=== PATIENT | female | born 1975 | race Caucasian/White ===

== ENCOUNTER 2024-07-02 16:29 | Outpatient (REF) | payer OTHER, SELFPAY ==
--- NOTE | ~2024-07-02 | XR_ITS ---
EXAMINATION: XR CHEST CLINICAL INFORMATION: Cough. COMPARISON: None available. TECHNIQUE: 2 views of the chest were obtained. FINDINGS: No airspace consolidation. No pleural effusion or pneumothorax. Unremarkable cardiomediastinal silhouette. Partially visualized, peripherally calcified structure within the left upper quadrant measuring up to 12.5 cm in craniocaudal dimension. Findings are nonspecific and may be related to the spleen, adrenal gland, or left kidney. If there is clinical concern and no prior medical history, abdominal imaging could help further evaluate. XR/XR chest 2V IMPRESSION: 1. No acute cardiopulmonary findings. 2. Partially visualized, peripherally calcified structure within the left upper quadrant measuring up to 12.5 cm in craniocaudal dimension. Findings are nonspecific and may be related to the spleen, adrenal gland, or left kidney. If there is clinical concern and no prior medical history, abdominal imaging could help further evaluate. Electronically signed by: Florentino Harper MD 07/02/2024 05:17 PM EDT
== END 2024-07-02 16:30 | disposition home or self-care (01) ==
LOC: HO.XRAY 16:29
PROVIDERS: PCP Internal Medicine; Visit Provider Physician Assistant Medical
DX: R05.9 Cough, unspecified (principal); R06.02 Shortness of breath
CPT/HCPCS: 71046

== ENCOUNTER 2024-07-02 18:16 | Emergency (ER) | payer OTHER, SELFPAY ==
--- NOTE | ~2024-07-02 | CT_ITS ---
EXAMINATION: CT ABDOMEN AND PELVIS WITH CONTRAST CLINICAL INFORMATION: Left upper quadrant mass COMPARISON: None available. TECHNIQUE: Multidetector volumetric images were obtained from the superior aspect of the liver through the pubic symphysis following administration 85 mL of Omnipaque 350 intravenous contrast. Sagittal and coronal reformatted images were obtained on the technologist's workstation. Oral contrast: No This CT examination was performed using dose optimization techniques as appropriate, variously including the following: *Automated exposure control *Adjustment of mA and/or kV according to patient size (this includes techniques or standardized protocols for targeted exams where dose is matched to indication/reason for exam; i.e. extremities or head) *Use of iterative reconstruction technique DLP: 478 mGy-cm FINDINGS: LUNG BASES: There is an opacity at the left lung base, at the anterior aspect of the lower lobe which could represent pneumonia or rounded atelectasis given its location immediately adjacent to the subdiaphragmatic rim calcified splenic cyst. LIVER, GALLBLADDER, AND BILIARY TREE: The liver is normal in size, shape, and attenuation. No focal hepatic lesion or biliary ductal dilatation is present. The gallbladder is unremarkable with no evidence of radiopaque gallstones, gallbladder wall thickening, or obvious pericholecystic inflammatory changes. PANCREAS: Unremarkable. SPLEEN: Within the anterior aspect of the spleen there is a rim calcified cyst measuring 7.4 x 8.3 x 10.4 cm. 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 The remainder of the spleen appears normal. ADRENAL GLANDS: Unremarkable. KIDNEYS AND URETERS: The kidneys are normal in size, shape, and attenuation. No hydronephrosis, hydroureter, or calculi seen. No perinephric stranding. BLADDER: Unremarkable. GASTROINTESTINAL TRACT: The small and large bowel are unremarkable. The appendix is unremarkable. ABDOMINAL WALL: No significant hernia is appreciated. LYMPH NODES: Normal. VASCULAR: Unremarkable. PELVIC VISCERA: The uterus is retroflexed. Fluid is present within the endometrial canal. There is a 4.7 cm subserosal fibroid of the left anterior uterine body. OSSEOUS STRUCTURES: Moderate L5-S1 degenerative disc disease, as well as degenerative disc disease of the lower thoracic spine. CT/CT abdomen pelvis w IV con IMPRESSION: 1. There is a rim calcified cyst of the anterior aspect of the spleen measuring 7.4 x 8.3 x 10.4 cm. 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 2. There is an opacity at the anterior aspect of the left lung base along the left hemidiaphragm which could represent pneumonia or rounded atelectasis given its location immediately adjacent to the splenic cyst. 3. There is a 4.7 cm subserosal fibroid of the left anterior uterine body. Fleischner guidelines were followed. Electronically signed by: Anthony Durham MD 07/02/2024 07:49 PM EDT
--- NOTE | 2024-07-02 18:17 | ED_ITS ---
HPI - General Adult General Chief complaint: Recheck/Abnormal Lab/Rx Stated complaint: incidental finding on chest x ray Time Seen by Provider: 07/02/24 18:17 Source: patient Mode of arrival: ambulatory Limitations: no limitations History of Present Illness ED Provider: Nelsy Crockett PA-C HPI narrative: Patient is a 49 year old assigned female at with no reported medical history presenting to the emergency department today with a cough and concerns over an incidental finding on a CXR. Patient states that over the last 4 days she has had significant coughing with a fever. Patient states that she had an outpatient chest XR done that showed an incidental lesion in her abdomen that she would like further evaluated. Patient denies any dizziness, lightheadedness, abdominal pain, nausea, vomiting, chills, blurry vision, double vision, loss of vision, chest pain, difficulty breathing, shortness of breath, back pain, night sweats, pain with urination, increased urinary frequency, increased urinary urgency, blood in her urine or stool, syncope or a near syncopal episode, recent trauma or falls, bowel incontinence, bladder incontinence, or any other complaints at this time. Onset (ago): day(s) (4) Relieving factors: none Exacerbating factors: none Associated symptoms: cough Treatments prior to arrival: none Related Data Previous Rx's ?Medication ?Instructions ?Recorded azithromycin 250 mg tablet 250 mg PO DAILY 4 days #4 tabs 07/02/24 cefuroxime axetil 250 mg tablet 500 mg (2 x 250 mg) PO BID 7 days 07/02/24 #28 tabs Allergies Allergy/AdvReac Type Severity Reaction Status Date / Time No Known Allergies Allergy Verified 07/02/24 18:23 Review of Systems 2 Constitutional: Constitutional: Reports no additional constitutional complaints, Denies chills, Reports fever(s) and Denies night sweats Eyes: Eyes: Reports no additional eye complaints, Denies blurry vision, Denies change in vision, Denies diplopia, Denies eye discharge, Denies loss of vision and Denies eye pain ENT: Denies dizziness Cardiovascular: Cardiovascular: Reports no additional cardiovascular complaints, Denies chest pain, Denies lightheadedness, Denies Loss of Consciousness and Denies dyspnea Respiratory: Respiratory: Reports no additional respiratory complaints, Reports cough and Denies dyspnea Gastrointestinal: Gastrointestinal: Reports no additional gastrointestinal complaints, Denies abdominal pain, Denies melena, Denies hematochezia, Denies change in bowel habits and Denies change in stool character Genitourinary: Genitourinary: Denies hematuria, Denies urinary frequency, Denies dysuria, Denies urinary incontinence, Denies urinary hesitancy and Denies urinary urgency Musculoskeletal: Musculoskeletal: Reports no additional musculoskeletal complaints, Denies numbness and Denies tingling Neurologic: Denies dizziness, Denies loss of vision, Denies numbness and Denies tingling Psychiatric: Psychiatric: Reports no additional psychiatric complaints Endocrine: Endocrine: Reports no additional endocrine complaints Hematologic/Lymphatic: Hematologic/Lymphatic: Reports no additional hematologic/lymphatic complaints Allergic/Immunologic: Allergic/Immunologic: Reports no additional allergic/immunologic complaints PMFSH Past Medical History Attestation statement: The following information was validated with the patient. Source: old records reviewed and nursing notes reviewed Social History Social History Advance Directives: No Advance Directives Information Provided: No Physical Exam ED Vital Signs: Vital Signs - 24 hr 07/02/24 18:22 Temperature 98.6 F Pulse Rate 90 Respiratory Rate 20 Blood Pressure 142/97 H Pulse Oximetry 98 Oxygen Delivery Method Room Air BMI result Body Mass Index 24.6 Const General: cooperative, no acute distress, alert and awake Nutritional Appearance: well nourished Orientation/consciousness: patient oriented x3 Limitations: no limitations HENMT Head: Yes normal to inspection and Yes atraumatic Ears: hearing grossly normal bilaterally and external ears normal General nose exam: Normal external nose present, no nasal discharge noted and no epistaxis Face and sinus: Yes normal facial exam, No abrasion and No laceration Mouth: Normal oral and palatal mucosa present, no drooling and no muffled voice Eyes General: appearance normal, both eyes and all related structures Periorbital: periorbital findings normal Eyelids: Yes eyelids normal Conjunctivae: conjunctivae normal Pupils: Equal, round and reactive pupils present EOM: EOMs intact bilaterally Neck Neck: Yes normal visual inspection, Yes full ROM and Yes no lymphadenopathy Chest Chest palpation & inspection: normal inspection of the chest Resp Effort & Inspection: normal respiratory effort and able to speak in complete sentences GI Inspection: Yes normal to inspection Neuro General: patient oriented x3 and moves all extremities Cranial nerves: Yes Equal, round and reactive pupils present Cognition (Neuro): normal cognition Extrem General: Yes normal to inspection, Yes full ROM and Yes capillary refill normal Psych Appearance: grossly normal Mental Status: mental status grossly normal Affect: normal affect Attitude: cooperative Thought process: Normal thought process present Thought content: Normal thought content present Insight: Good insight present (Psych) Medications Administered Discontinued Medications Generic Name Dose Route Start Last Admin Trade Name Leslie PRN Reason Stop Dose Admin Iohexol 100 ml 07/02/24 19:04 07/02/24 19:05 Iohexol 350 Mg/Ml 100 Ml Infus..Btl IV 07/02/24 19:05 85 ml ONCE ONE Administration Medical Decision Making Medical Decision Making [facility] Narrative: Patient is a 49 year old assigned female at with no reported medical history presenting to the emergency department today with a cough, fever, and incidental imaging finding. Patient's physical exam was unremarkable. Patient's blood work was unremarkable. Patient's out patient chest x-ray showed a partially visualized calcified structure within the upper left quadrant measuring up to 12.5cm for which the radiologist recommended additional imaging. Patient's CT abd/pelvis showed a posttraumatic pseudocyst of the spleen, a left sided pneumonia, and a uterine fibroid. I explained my physical exam findings as well as all test results to the patient. I answered all questions asked by the patient. I stressed the importance of the patient taking her medication as directed (either prescribed or as the over the counter packaging recommends). I stressed the importance of the patient following up with her primary care provider. I stressed the importance of the patient returning to the emergency department immediately if her symptoms were to worsen or if she were to develop any dizziness, shortness of breath, difficulty breathing, chest pain, blurry vision, loss of vision, nausea, vomiting, abdominal pain, fever, chills, back pain, or any other complaints. Patient verbalized agreement and understanding with this treatment plan and discharge. Differential Diagnosis Differential Diagnoses: The differential diagnosis associated with the presentation includes COVID-19 Influenza RSV Pneumonia Splenic cyst Admission/Observation Consideration of admission/observation: Escalation of care including admission/observation considered Patient would have been admitted to the hospital had her work up had any findings where hospital admission was appropriate and her clinical presentation warranted hospital admission. Lab Data [facility] Lab Attestation statement: I reviewed the patient's lab results. My interpretation of these studies and their corresponding values is that they are grossly normal. 07/02/24 18:26 07/02/24 18:26 Labs: Lab Results 07/02/24 Range/Units 18:26 WBC 8.8 (4.8-10.8) X10*3/uL RBC 4.43 (4.20-5.50) X10*6/uL Hgb 13.6 (12.0-16.0) g/dl Hct 38.9 (37.0-47.0) % MCV 87.8 (80.0-98.0) fL MCH 30.7 (27.0-33.0) pg MCHC 35.0 (31.0-35.0) g/dl RDW 13.1 (11.0-16.0) % Plt Count 244 (160-400) X10*3/uL MPV 9.2 L (9.4-12.3) fL Immature Gran % (Auto) 0.2 (0.0-0.4) % Neut % (Auto) 78.8 H (45-73) % Lymph % (Auto) 9.5 L (20-40) % [place] % (Auto) 10.3 (2-11) % Eos % (Auto) 0.9 (0-4) % Baso % (Auto) 0.3 (0-2) % Lymph # (Auto) 0.8 L (1.2-4.9) X10*3/uL [place] # (Auto) 0.9 (0.1-1.2) X10*3/uL Eos # (Auto) 0.1 (0.0-0.4) X10*3/uL Baso # (Auto) 0.0 (0.0-0.2) X10*3/uL Abs Immat Gran (auto) 0.02 (0.00-0.03) X10*3/uL Absolute Neuts (auto) 7.0 (2.0-8.3) x10*3/uL Absolute Nucleated RBC 0.000 (0.0-0.012) X10*3/uL Nucleated RBC % (auto) 0.0 (0.0-0.2) /100WBC Sodium 137 (135-145) mmol/L Potassium 4.1 (3.3-5.1) mmol/L Chloride 105 (96-108) mmol/L Carbon Dioxide 23 (22-29) mmol/L Anion Gap 13 (12-20) BUN 11 (9-16) mg/dL Creatinine 0.83 (0.5-1.4) mg/dL Estim Creat Clear Calc 77.9 Estimated GFR > 60 Random Glucose 93 (60-115) mg/dL Calcium 9.6 (8.4-10.2) mg/dL Magnesium 1.9 (1.6-2.6) mg/dL Total Bilirubin 0.5 (0.0-1.0) mg/dL AST 23 (5-31) U/L ALT 16 (0-31) U/L Alkaline Phosphatase 59 (39-117) U/L Total Protein 7.8 (6.5-8.0) g/dL Albumin 4.3 (3.5-5.0) g/dL Lipase 25 (8-78) U/L Monoscreen Negative (Negative) Influenza Type A (PCR) NEGATIVE (Negative) Influenza Type B (PCR) NEGATIVE (Negative) RSV RNA Qual (PCR) NEGATIVE (Negative) SARS-CoV-2 RNA (RT-PCR) NEGATIVE (Negative) Independent Interpretation I performed an independent interpretation of an: Plain X-Ray and CT Scan Interpretation: My interpretation is in agreement with the radiologist's impression of these imaging studies. L EXAMINATION: XR CHEST CLINICAL INFORMATION: Cough. COMPARISON: None available. TECHNIQUE: 2 views of the chest were obtained. FINDINGS: No airspace consolidation. No pleural effusion or pneumothorax. Unremarkable cardiomediastinal silhouette. Partially visualized, peripherally calcified structure within the left upper quadrant measuring up to 12.5 cm in craniocaudal dimension. Findings are nonspecific and may be related to the spleen, adrenal gland, or left kidney. If there is clinical concern and no prior medical history, abdominal imaging could help further evaluate. XR/XR chest 2V IMPRESSION: 1. No acute cardiopulmonary findings. 2. Partially visualized, peripherally calcified structure within the left upper quadrant measuring up to 12.5 cm in craniocaudal dimension. Findings are nonspecific and may be related to the spleen, adrenal gland, or left kidney. If there is clinical concern and no prior medical history, abdominal imaging could help further evaluate. Electronically signed by: Florentino Harper MD 07/02/2024 05:17 PM EDT RP Dictated By: Florentino Harper MD Signed By: Electronically signed by Florentino Harper MD 07/02/24 1717 EXAMINATION: CT ABDOMEN AND PELVIS WITH CONTRAST CLINICAL INFORMATION: Left upper quadrant mass COMPARISON: None available. TECHNIQUE: Multidetector volumetric images were obtained from the superior aspect of the liver through the pubic symphysis following administration 85 mL of Omnipaque 350 intravenous contrast. Sagittal and coronal reformatted images were obtained on the technologist's workstation. Oral contrast: No This CT examination was performed using dose optimization techniques as appropriate, variously including the following: *Automated exposure control *Adjustment of mA and/or kV according to patient size (this includes techniques or standardized protocols for targeted exams where dose is matched to indication/reason for exam; i.e. extremities or head) *Use of iterative reconstruction technique DLP: 478 mGy-cm FINDINGS: LUNG BASES: There is an opacity at the left lung base, at the anterior aspect of the lower lobe which could represent pneumonia or rounded atelectasis given its location immediately adjacent to the subdiaphragmatic rim calcified splenic cyst. LIVER, GALLBLADDER, AND BILIARY TREE: The liver is normal in size, shape, and attenuation. No focal hepatic lesion or biliary ductal dilatation is present. The gallbladder is unremarkable with no evidence of radiopaque gallstones, gallbladder wall thickening, or obvious pericholecystic inflammatory changes. PANCREAS: Unremarkable. SPLEEN: Within the anterior aspect of the spleen there is a rim calcified cyst measuring 7.4 x 8.3 x 10.4 cm. 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 The remainder of the spleen appears normal. ADRENAL GLANDS: Unremarkable. KIDNEYS AND URETERS: The kidneys are normal in size, shape, and attenuation. No hydronephrosis, hydroureter, or calculi seen. No perinephric stranding. BLADDER: Unremarkable. GASTROINTESTINAL TRACT: The small and large bowel are unremarkable. The appendix is unremarkable. ABDOMINAL WALL: No significant hernia is appreciated. LYMPH NODES: Normal. VASCULAR: Unremarkable. PELVIC VISCERA: The uterus is retroflexed. Fluid is present within the endometrial canal. There is a 4.7 cm subserosal fibroid of the left anterior uterine body. OSSEOUS STRUCTURES: Moderate L5-S1 degenerative disc disease, as well as degenerative disc disease of the lower thoracic spine. CT/CT abdomen pelvis w IV con IMPRESSION: 1. There is a rim calcified cyst of the anterior aspect of the spleen measuring 7.4 x 8.3 x 10.4 cm. 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 2. There is an opacity at the anterior aspect of the left lung base along the left hemidiaphragm which could represent pneumonia or rounded atelectasis given its location immediately adjacent to the splenic cyst. 3. There is a 4.7 cm subserosal fibroid of the left anterior uterine body. Fleischner guidelines were followed. Electronically signed by: Anthony Durham MD 07/02/2024 07:49 PM EDT RP Dictated By: Anthony Durham MD Signed By: Electronically signed by Anthony Durham MD 07/02/241948 Radiology Impression Discussion of test interpretation with radiology: I have reviewed the radiologist's reading. Prescription Management I considered prescription management with: Antibiotic (patient prescribed antibiotics to cover atypical pneumonia) Discharge Plan Discharge Clinical Impression: Pneumonia, Splenic cyst, Uterine fibroid Patient Disposition: Home, Self-Care Instructions: Community Acquired Pneumonia (DC) Additional Instructions: Your CT scan showed a calcified cyst of the spleen which likely represents a chronic posttraumatic pseudocyst as well as a uterine firboid and possible pneumonia. Given your symptoms - we are treating you for pneumonia. Follow up with your primary care provider. Return to the emergency department immediately if your symptoms worsen or if you develop any dizziness, shortness of breath, difficulty breathing, chest pain, blurry vision, loss of vision, nausea, vomiting, abdominal pain, fever, chills, back pain, or any other complaints. Prescriptions: New azithromycin 250 mg tablet 250 mg PO DAILY 4 Days Qty: 4 0RF Rx Instructions: start on day 2 of therapy cefuroxime axetil 250 mg tablet 500 mg PO BID 7 Days Qty: 28 0RF Referrals: Maye Vázquez MD [Primary Care Provider] - Interventions: ED Discharge Assessment Last Done: 07/02/24 20:24 Print Language: Brazilian
[2024-07-02 18:22] VITALS: BP 142/97; PULSE 90; RESP 20; TEMP 37; O2SAT 98; BMI 24.6
[2024-07-02 18:30] LABS: MANUAL DIFF FLAG NO
[2024-07-02 18:31] LABS: Basophils Percent Auto 0.3 % (0-2); Eosinophils Absolute Auto 0.1 X10*3/uL (0.0-0.4); Eosinophils Percent Auto 0.9 % (0-4); Hematocrit 38.9 % (37.0-47.0); Hemoglobin 13.6 g/dl (12.0-16.0); Imm Gran Abs Auto 0.02 X10*3/uL (0.00-0.03); Imm Gran Pct Auto 0.2 % (0.0-0.4); Lymphocytes Absolute Auto 0.8 X10*3/uL (1.2-4.9); Lymphocytes Percent Auto 9.5 % (20-40); Mean Corpuscular Hemoglobin 30.7 pg (27.0-33.0); Mean Corpuscular Volume 87.8 fL (80.0-98.0); Mean Platelet Volume 9.2 fL (9.4-12.3); Monocytes Absolute Auto 0.9 X10*3/uL (0.1-1.2); Monocytes Percent Auto 10.3 % (2-11); Neutrophils Percent Auto 78.8 % (45-73); Platelet Count 244 X10*3/uL (160-400); Red Blood Count 4.43 X10*6/uL (4.20-5.50); Red Cell Distribution Width 13.1 % (11.0-16.0); White Blood Count 8.8 X10*3/uL (4.8-10.8)
[2024-07-02 18:44] LABS: Alanine Aminotransferase 16 U/L (0-31); Albumin Level 4.3 g/dL (3.5-5.0); Alkaline Phosphatase 59 U/L (39-117); Anion Gap 13 (12-20); Aspartate Amino Transferase 23 U/L (5-31); Bilirubin Total 0.5 mg/dL (0.0-1.0); Blood Urea Nitrogen 11 mg/dL (9-16); Calcium 9.6 mg/dL (8.4-10.2); Carbon Dioxide 23 mmol/L (22-29); Chloride 105 mmol/L (96-108); Creatinine Clr Calc Pharmacy 77.9; Estimated Glomerular Filt Rate > 60; Glucose Random 93 mg/dL (60-115); Lipase 25 U/L (8-78); Magnesium 1.9 mg/dL (1.6-2.6); Potassium 4.1 mmol/L (3.3-5.1); Sodium 137 mmol/L (135-145); Total Protein 7.8 g/dL (6.5-8.0)
[2024-07-02 18:45] LABS: Monotest Negative (Negative)
[2024-07-02] MEDS: iohexoL 350 MG/ML 100 ML INFUS..BTL IV (19:05)
[2024-07-02 19:12] LABS: Influenza A PCR NEGATIVE (Negative); Influenza B PCR NEGATIVE (Negative); Resp Syncy Virus RNA Qual PCR NEGATIVE (Negative); SARS COV2 PCR INHOUSE NEGATIVE (Negative)
[2024-07-02] MEDS: cefuroxime axetiL 500 MG TABLET PO (20:23)
[2024-07-02] MEDS: Azithromycin 500 MG TABLET PO (20:23)
[2024-07-02 20:24] VITALS: BP 142/97; PULSE 90; RESP 20; TEMP 37; O2SAT 98
== END 2024-07-02 20:25 | disposition home or self-care (01) ==
PROVIDERS: Physician Assistant Medical; Emergency Provider Emergency Medicine; PCP Internal Medicine
DX: J18.9 Pneumonia, unspecified organism (principal); D25.9 Leiomyoma of uterus, unspecified; R10.2 Pelvic and perineal pain; R05.9 Cough, unspecified; R50.9 Fever, unspecified; Z79.899 Other long term (current) drug therapy; Z03.818 Encounter for observation for suspected exposure to other biological agents ruled out
CPT/HCPCS: 0241U; 36415; 74177; 80053; 83690; 83735; 85025; 86308; 99282; 99284; Q9967

== ENCOUNTER 2024-07-19 07:45 | Outpatient (AMB) | payer OTHER, SELFPAY ==
--- NOTE | 2024-07-19 08:06 | A.OFFPC_ITS ---
Vital Signs 07/19/24 08:07 Height 5 ft 7 in Weight 157 lb BMI 24.6 BP 118/78 Blood Pressure Location Lt brachial Position Sitting Pulse 79 Pulse Source Pulse Oximeter Pulse Oximetry (%) 99 Oxygen Delivery Method Room Air Intake Visit Reasons: Pvc Monitor Request PE Intake Note: Pt is here today for New patient visit PE. 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 PFSH Surgical History No pertinent past surgical history Family History Father Substance use disorder Mother Hypertension Substance use disorder Social History Household Members Other:: , 1 daughter, 23, PA at [employer] [facility] [facility] [facility] [place] [facility], Housing: House Patient Tobacco Use Status: Never used Tobacco e-Cigarette/Vaping Use: Never Used service: No Current occupational status: employed Cognitive needs: No Hearing needs: No Vision needs: No Questionnaire PHQ-9 Over the last 2 weeks, how often have you been bothered by any of the following problems? 1. Little interest or pleasure in doing things: not at all 2. Feeling down, depressed, or hopeless: not at all 3. Trouble falling or staying asleep, or sleeping too much: several days 4. Feeling tired or having little energy: not at all 5. Poor appetite or overeating: not at all 6. Feeling bad about yourself - or that you are a failure or have let yourself or your family down: not at all 7. Trouble concentrating on things, such as reading the newspaper or watching television: not at all 8. Moving or speaking so slowly that other people could have noticed. Or the opposite - being so fidgety or restless that you have been moving around a lot more than usual: not at all 9. Thoughts that you would be better off or of hurting yourself in some way: not at all Total score: 1 Depression Screening Interpretation: Negative Depression Screening Done: Yes 61767 - PHQ-9 Billing: Yes Source: Developed by Drs. Hansel Felix, Andreia Luevano, Rigo Monahan and colleagues, with an educational elsie from [employer]. Thrive Questionnaire Date Thrive assessed: 07/19/24 I am a: Patient What is your living situation today?: I have a steady place to live Within the past 12 months, did the food you bought not last and you didn't have the money to get more?: Never true Within the past 12 months, did you worry whether your food would run out before you got money to buy more?: Never true Do you have trouble paying for medicines?: No Do you have trouble getting transportation to medical appointments?: No Do you have trouble paying your heating and electricity bill?: No Do you have trouble taking care of your child, family member or friend?: No Do you have trouble with day-to-day activities such as bathing, preparing meals, shopping, managing finances, etc.?: No Are you currently unemployed and looking for a job?: No Are you interested in more education?: No Please select the resources that you would like help with: None Currently or been in a relationship where the following occur: No concerns reported THRIVE Score: 0 AUDIT C Alcohol Use Questionnaire (AUDIT-C) 1. How often do you have a drink containing alcohol?: 2-3 times a week 2. How many drinks containing alcohol do you have on a typical day when you are drinking?: 3 or 4 3. How often do you have six or more drinks on one occasion?: Less than monthly Total Score: 5 BHAVNA-7 AMB Questionnaire BHAVNA-7 Date BHAVNA - 7 assessed: 07/19/24 Feeling nervous, anxious, or on edge: 1 = Several days Not being able to stop or control worryin = Not at all Worrying too much about different things: 1 = Several days Trouble relaxin = More than half the days Being so restless that it is hard to sit still: 2 = More than half the days Becoming easily annoyed or irritable: 0 = Not at all Feeling afraid as if something awful might happen: 0 = Not at all Total BHAVNA-7 score (0-4 normal; 5-9 mild; 10-14 moderate; 15-21 severe): 6 Source: Developed by Drs. Hansel Felix, Andreia Luevano, Rigo Monahan and colleagues, with an educational elsie from [employer]. BHAVNA-7 Assessment Billing BHAVNA-7 Assessment Tool: BHAVNA-7 Assessment 60137 Review of Systems Const All systems reviewed & are unremarkable except as noted in HPI and below Eyes Reports no additional complaints ENT Reports no additional complaints Card Reports no additional complaints Resp Reports no additional complaints GI Reports no additional complaints Reports no additional complaints Musc Reports no additional complaints Physical exam (Primary Care) Vital Signs: Last Vital Signs Pulse 79 07/19/24 08:07 BP 118/78 07/19/24 08:07 Pulse Ox 99 07/19/24 08:07 Oxygen Delivery Method Room Air 07/19/24 08:07 BMI result Body Mass Index 24.6 Tobacco/Smoking Status: Tobacco use Status Tobacco use date assessed 07/19/24 07/19/24 08:13 Patient Tobacco Use Status Never used Tobacco 07/19/24 08:13 e-Cigarette/Vaping Use Never Used 07/19/24 08:13 PHQ-9: PHQ-9 Score PHQ-9: Total score 1 07/19/24 08:13 Depression Screening Interpretation: Negative Thrive Assessment: Date of Thrive Assessment Date Thrive assessed 07/19/24 07/19/24 08:13 Currently or been in a relationship where the following occur: No concerns reported Const General: no acute distress HENMT Head: Yes normal to inspection Ears: hearing grossly normal bilaterally Face and sinus: Yes normal facial exam Mouth: Normal oral and palatal mucosa present Throat: Yes posterior oropharynx normal Eyes General: appearance normal, both eyes and all related structures Neck Neck: Yes no lymphadenopathy and Yes supple Resp Effort & Inspection: normal respiratory effort Auscultation: clear to auscultation bilaterally Cardio Rhythm: regular rhythm Heart sounds: S1 normal heart sound present and S2 normal heart sound present GI Inspection: Yes normal to inspection Palpation (GI): Soft to palpation Percussion: Yes normal to percussion Auscultation: normal bowel sounds Coding Level of Care Code Est Pt Prev Care 40-64y(73332) Diagnoses Splenic cyst, acquired D73.4 Annual physical exam Z00.00 Goiter E04.9 Additional Codes BHAVNA-7 Assessment Billing - BHAVNA-7 Assessment Tool: BHAVNA-7 Assessment 63809 ([id number]) PHQ-9 - 74586 - PHQ-9 Billing: Yes ([id number]) Assessment & Plan Assessment & Plan (1) Splenic cyst, acquired: Comment: CT scan 7.4x8.3x10.4 cm calcified splenic cyst Code(s): D73.4 - Cyst of spleen Category: Medical Plan: refer to surgery (2) Annual physical exam: Code(s): Z00.00 - Encounter for general adult medical examination without abnormal findings Category: Medical Plan: well balanced diet, regular exercise (3) Goiter: Code(s): E04.9 - Nontoxic goiter, unspecified Category: Medical Plan: check thyroid US Orders: Orders US thyroid Today E04.9 - Nontoxic goiter, unspecified Lipid Panel Today Z00.00 - Encounter for general adult medical examination without abnormal findings, Z01.419 - Encounter for gynecological examination (general) (routine) without abnormal findings Vitamin D 25-OH Total Today Z00.00 - Encounter for general adult medical examination without abnormal findings, Z01.419 - Encounter for gynecological examination (general) (routine) without abnormal findings Referrals General Surgery Referral D73.4 - Cyst of spleen Gastroenterology Referral Z00.00 - Encounter for general adult medical examination without abnormal findings Medications: Discontinued fluconazole Discontinued Reason: Patient Completed Course 150 mg PO Q3D 2 tabs 0RF azithromycin start on day 2 of therapy Discontinued Reason: Patient Completed Course 250 mg PO DAILY 4 days 4 tabs 0RF cefuroxime axetil Discontinued Reason: Patient Completed Course 500 mg (2 x 250 mg) PO BID 7 days 28 tabs 0RF
[2024-07-19 08:07] VITALS: BP 118/78; PULSE 79; O2SAT 99; BMI 24.6
== END 2024-07-19 09:14 | disposition home or self-care (01) ==
PROVIDERS: PCP Internal Medicine; Visit Provider Internal Medicine
DX: D73.4 Cyst of spleen (principal); Z00.00 Encounter for general adult medical examination without abnormal findings; E04.9 Nontoxic goiter, unspecified

== ENCOUNTER → 2024-07-19 07:45 | Outpatient (BNVA) | payer OTHER, SELFPAY | PROVIDERS: PCP Internal Medicine; Visit Provider Internal Medicine | DX: Z00.00 Encounter for general adult medical examination without abnormal findings (principal); D73.4 Cyst of spleen; E04.9 Nontoxic goiter, unspecified | CPT/HCPCS: 96127 ==

== ENCOUNTER 2024-08-09 10:03 | Outpatient (REF) | payer OTHER, SELFPAY ==
[2024-08-09 12:37] LABS: Cholesterol 222 mg/dL (<200); HDL Cholesterol 72 mg/dL (>40); LDL Cholesterol Calculated 130 mg/dL (<100); Triglycerides 100 mg/dL (<150)
[2024-08-09 12:38] LABS: Vitamin D 25-OH Total 27.3 ng/mL (>30)
== END 2024-08-09 10:04 | disposition home or self-care (01) ==
LOC: HO.US 10:03
PROVIDERS: PCP Internal Medicine; Visit Provider Internal Medicine
DX: E04.9 Nontoxic goiter, unspecified (principal); Z13.6 Encounter for screening for cardiovascular disorders; Z00.00 Encounter for general adult medical examination without abnormal findings
CPT/HCPCS: 36415; 76536; 80061; 82306

== ENCOUNTER 2024-09-07 11:06 | Outpatient (AMB) | payer OTHER, SELFPAY ==
--- NOTE | 2024-09-07 11:09 | A.OFFVIS_ITS ---
Vital Signs 09/07/24 11:15 Height 5 ft 7 in Weight 160 lb 8 oz BMI 25.1 BP 147/103 H Blood Pressure Location Lt brachial Position Sitting Pulse 91 Intake Visit Reasons: Cyst of the spleen Intake Note: Patient is seen in office for evaluation and treatment of a cyst of the spleen. Pt c/o: no symptoms, incidental finding, had chest x-rays for pneumonia and was told about the cyst ref. 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 Subsequent CT abdomen and pelvis confirmed a calcified cystic collection in the spleen felt to be possibly posttraumatic. She denies any abdominal symptoms at this time. She was involved in equestrian sports many years ago and frequently was thrown from the horse and feels this may have caused the hematoma. She denies any nausea, vomiting, fever or chills. She denies a history of prior abdominal surgeries. [facility] Surgical History No pertinent past surgical history Family History Father Substance use disorder Mother Hypertension Substance use disorder Social History Household Members Other:: , 1 daughter, 23, PA at [employer] [facility] [facility] [place] [facility], Housing: House Patient Tobacco Use Status: Never used Tobacco e-Cigarette/Vaping Use: Never Used service: No Current occupational status: employed Cognitive needs: No Hearing needs: No Vision needs: No Review of Systems Const All systems reviewed & are unremarkable except as noted in HPI and below Physical Exam Const General: no acute distress Nutritional Appearance: well nourished Orientation/consciousness: patient oriented x3 Limitations: no limitations Resp Effort & Inspection: normal respiratory effort, no audible wheezes, no cough and no respiratory distress GI Other: Soft and nondistended. Nontender to palpation. Palpable spleen noted with deep inspiration left upper quadrant Skin General skin exam: no rashes or lesions noted Neuro General: patient oriented x3 Extrem General: No edema Assessment & Plan Assessment & Plan (1) Splenic cyst, acquired: Comment: CT scan 7.4x8.3x10.4 cm calcified splenic cyst Code(s): D73.4 - Cyst of spleen Category: Medical Plan 49-year-old female patient presenting with an incidentally noted splenic cyst of probable posttraumatic origin. The original injury is not known for certain but may be related to a fall from a horse many years ago. I reviewed the procedure to drain the cyst which can perform laparoscopically. Given the size of the cyst this would need to be a fenestrated technique to prevent reaccumulation. Alternatively, we can continue to observe the cyst as she is asymptomatic. We reviewed some of the symptoms that may develop at which time consideration could be given to perform the laparoscopic procedure. We agreed to continue observation and she will call should any symptoms develop. She will follow-up as needed. Coding Level of Care Code New Pt Level 4 (46305) Diagnoses Splenic cyst, acquired D73.4
[2024-09-07 11:15] VITALS: BP 147/103; PULSE 91; BMI 25.1
== END 2024-09-07 11:44 | disposition home or self-care (01) ==
PROVIDERS: PCP Internal Medicine; Visit Provider Surgery
DX: D73.4 Cyst of spleen (principal)
CPT/HCPCS: 99204

== ENCOUNTER 2024-11-04 13:54 | Outpatient (REF) | payer OTHER, SELFPAY ==
[2024-11-04 17:19] LABS: Free T4 (Free Thyroxine) 1.01 ng/dL (0.71-1.85); Thyroid Stimulating Hormone 0.83 uIU/mL (0.32-4.0)
== END 2024-11-04 13:55 | disposition home or self-care (01) ==
LOC: HO.LAB 13:54
PROVIDERS: PCP Internal Medicine; Visit Provider Student in an Organized Health Care Education/Training Program
DX: E04.2 Nontoxic multinodular goiter (principal)
CPT/HCPCS: 36415; 84439; 84443

== ENCOUNTER 2024-11-04 13:54 | Outpatient (AMB) | payer OTHER, SELFPAY ==
--- NOTE | 2024-11-04 13:57 | A.OFFVIS_ITS ---
Vital Signs 11/04/24 14:00 Height 5 ft 7 in Weight 156 lb 8.451 oz BMI 24.5 BP 108/70 Blood Pressure Location Rt brachial Position Sitting Pulse 81 Pulse Source Pulse Oximeter Pulse Oximetry (%) 98 Oxygen Delivery Method Room Air Intake Visit Reasons: Nontoxic single thyroid nodule, Goiter Intake Note: New patient present today for Nontoxic single thyroid nodule, Goiter. 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 08/09/2024: Ultrasound of the thyroid I reviewed the images myself which showed a right lower pole dominant 2.2 cm nodule which is solid, isoechoic, taller than wide, with the extrathyroidal extension, TR 5 category meeting criteria for FNA. There are subcentimeter benign nodules noted on the left thyroid lobe. No TFTs in the chart. Patient currently denies heat or cold intolerance, diarrhea or constipation, hair loss, palpitation, anxiety, weight changes, mood changes, low energy, changes in appearance of eyes or vision changes, tremors, increased diaphoresis or dry skin. ? LMP: getting every month Patient denies any difficulty swallowing, pain on swallowing or voice changes or difficulty breathing. Patient denies any history of childhood neck radiation. Denies having ever used lithium, amiodarone. Biotin: yes Patient denies any family history of thyroid cancer or thyroid disease. 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 COMPARISON: None available. TECHNIQUE: Linear transducer grayscale and color Doppler examination with attention to the region of the thyroid. FINDINGS: SIZE: Measurements of the thyroid lobes and nodules are given in sagittal, anteroposterior and transverse dimensions respectively. Right Thyroid Lobe: 5.7 x 1.7 x 2.1 cm, volume 10.6 mL. Parenchyma: The gland echotexture is heterogeneous. Thyroid vascularity is increased. Left Thyroid Lobe: 6.0 x 1.1 x 1.5 cm, volume 5.2 mL. Parenchyma: The gland echotexture is heterogeneous. Thyroid vascularity is normal. Isthmus: 0.3 cm in maximum AP dimension. Estimated total number of nodules greater than or equal to 1 cm: 1. Body Mechanic nodules are described as follows: 1. Location: Right lower pole. Size: 2.2 x 1.7 x 1.4 cm, volume 2.69 mL. Nodule characteristics: Composition: Solid (2). Echogenicity: Isoechoic (1). Shape: Taller than wide (3). Margins: Extrathyroidal extension (3). Echogenic Foci: None (0). ACR TI-RADS total points: 9 ACR TI-RADS category: 5 2. Location: Left mid pole. Size: 0.4 x 0.2 x 0.4 cm, volume 0.02 mL. Nodule characteristics: Composition: Cystic(0). ACR TI-RADS total points: 0 ACR TI-RADS category: 1 3. Location: Left mid pole. Size: 0.5 x 0.2 x 0.5 cm, volume 0.03 mL. Nodule characteristics: Composition: Spongiform (0). ACR TI-RADS total points: 0 ACR TI-RADS category: 1 NODES: No lymphadenopathy is seen in the tissue surrounding the thyroid gland. IMPRESSION: Enlarged, diffusely heterogeneous multinodular thyroid gland. 2.2 cm RIGHT TR 5 thyroid nodule meets criteria for biopsy. Fine-needle aspiration recommended. [facility] Medical History (Updated 11/04/24 @ 14:03 by Vicki Alba MD) Multinodular goiter Surgical History No pertinent past surgical history Family History Father Substance use disorder Mother Hypertension Substance use disorder Social History Household Members Other:: , 1 daughter, 23, PA at [employer] [place] [facility], Housing: House Patient Tobacco Use Status: Never used Tobacco e-Cigarette/Vaping Use: Never Used service: No Current occupational status: employed Cognitive needs: No Hearing needs: No Vision needs: No Physical Exam Vital Signs: BMI result Body Mass Index 24.5 Assessment & Plan Assessment & Plan (1) Multinodular goiter: Code(s): E04.2 - Nontoxic multinodular goiter Category: Medical Plan: 49-year-old female with no family history of thyroid cancer, with no personal history of head or neck radiation who is here today for evaluation of multinodular goiter. 08/09/2024: Ultrasound of the thyroid I reviewed the images myself which showed a right lower pole dominant 2.2 cm nodule which is solid, isoechoic, taller than wide, with the extrathyroidal extension, TR 5 category meeting criteria for FNA. There are subcentimeter benign nodules noted on the left thyroid lobe. No TFTs in the chart. I explained that it is common to have thyroid nodules. About 95% of the time these nodules are benign. However if the nodule is > 1 cm in size or suspicious on ultrasound then a fine need aspiration biopsy is recommended. We discussed that a FNAB involves 4-5 passes with a small gauge needle and material obtained is sent off for cytology.If the cytopathology is benign then the nodule will be followed annually with repeat ultrasounds. However if it is suspicious or malignant, we will need to discuss further management. Indeterminate cytology can be further investigated with repeat FNA, genetic testing or empiric lobectomy. Malignant cytology is managed with either lobectomy or total thyroidectomy. We discussed briefly that thyroid cancer is, in most patients, an indolent disease that does not affect mortality. I reviewed with the patient the significance of the thyroid nodule and the need for a biopsy due to the size exceeding criteria warranting further investigation. The diagnostic procedure involves risks and benefits, including a small chance of bleeding, infection, or damage to surrounding tissues. I discussed the potential for benign, malignant, non-diagnostic, or indeterminate biopsy results, outlining appropriate management pathways for each scenario, including potential surgical intervention for confirmed malignancies. I addressed the process of obtaining consent, ensuring patient understanding and agreement with proceeding to biopsy. The follow-up appointment will review biopsy results in person. Instructed the patient to complete necessary thyroid function blood tests prior to the procedure. We will arrange for FNA of the right lower pole 2.2 cm thyroid nodule at next available opening and patient will follow up with me in clinic thereafter for results and further decision making. Plan: -ordered TSH with free T4 to be done today -scheduled for FNA of the right lower pole 2.2 cm thyroid nodule and follow up 2 weeks after to discuss results Patient was informed and verbally consented to the use of an ambient scribe for clinic note documentation during this visit. Plan I spent 45 minutes in reviewing the record, seeing the patient and documenting in the medical record. Orders: Orders Thyroid Stimulating Hormone Today E04.2 - Nontoxic multinodular goiter Free T4 (Free Thyroxine) Today E04.2 - Nontoxic multinodular goiter US biopsy thyroid Today E04.2 - Nontoxic multinodular goiter Patient Instructions: Do blood work today We will schedule you for right-sided thyroid nodule biopsy and a follow up 2 weeks after to discuss results Coding Level of Care Code New Pt Level 4 (60755) Diagnoses Multinodular goiter E04.2 Time Spent (min) 45
[2024-11-04 14:00] VITALS: BP 108/70; PULSE 81; O2SAT 98; BMI 24.5
== END 2024-11-04 14:33 | disposition home or self-care (01) ==
PROVIDERS: PCP Internal Medicine; Visit Provider Student in an Organized Health Care Education/Training Program
DX: E04.2 Nontoxic multinodular goiter (principal)
CPT/HCPCS: 99204

== ENCOUNTER 2024-11-24 10:54 | Outpatient (REF) | payer OTHER, SELFPAY ==
--- NOTE | 2024-11-24 11:22 | PCN2_ITS ---
Brief Operative Note Date of procedure: 11/24/24 Pre-op diagnosis: right inferior 2.2 cm thyroid nodule FNA biopsy Post-op diagnosis: same Procedure: THYROID FINE NEEDLE ASPIRATION PROCEDURE NOTE ? PROCEDURE PERFORMED: Ultrasound-guided FNA of thyroid nodule ? OPERATORS: Dr. Vicki Alba ? INDICATION: right inferior 2.2 cm thyroid nodule ; FNA performed to assess for malignancy ? DESCRIPTION OF PROCEDURE: The indications for FNA (to assess for malignancy) were reviewed with the patient in detail. Potential complications (e.g., bleeding, infection, damage to local structures, absence of clear diagnosis after FNA) were reviewed. Alternatives to FNA including conservative observation or surgery were described. The patient understood and agreed to proceed. This was documented by the signing of the written informed consent form. A time-out was performed to confirm the patient's identity and the site of planned FNA. The nodule of interest was identified using ultrasound (14 MHz linear array probe). The site of FNA was then draped in the usual fashion and ca refully cleaned and prepared using alcohol swabs. The skin at the previously-identified site of needle insertion was iced and sprayed with numbing spray. Under ultrasound guidance, _4_ passes were performed using a 1.5-inch, 25-gauge needle, and sample was obtained via capillary action. The needle tip was clearly visualized to be within the nodule at the time of sampling for _4_ of _4_ passes The patient tolerated the procedure well. There were no immediate complications. A small adhesive bandage was applied, and the patient was advised to take acetaminophen (rather than NSAIDs) for any discomfort and to report any signs of inflammation/infection or marked swelling. IMPRESSION: Technically successful ultrasound-guided fine needle aspiration of right inferior 2.2 cm thyroid nodule . PLAN: The patient was advised that I will provide follow-up regarding the cytology result and any subsequent plans. Vicki Alba MD Endocrinology Attending Condition: stable Disposition: same day
== END 2024-11-24 10:55 | disposition home or self-care (01) ==
LOC: HO.US 10:54
PROVIDERS: PCP Internal Medicine; Visit Provider Student in an Organized Health Care Education/Training Program
DX: E04.2 Nontoxic multinodular goiter (principal)
CPT/HCPCS: 10005; 88112; 88173; 88305

== ENCOUNTER → 2024-11-24 10:54 | Outpatient (BNV) | payer OTHER, SELFPAY | PROVIDERS: PCP Internal Medicine; Visit Provider Student in an Organized Health Care Education/Training Program | DX: E04.1 Nontoxic single thyroid nodule (principal) | CPT/HCPCS: 10005 ==

== ENCOUNTER 2025-01-05 13:27 | Outpatient (AMB) | payer OTHER, SELFPAY ==
--- NOTE | 2025-01-05 13:33 | A.OFFVIS_ITS ---
Vital Signs 3 01/05/25 13:34 Height 5 ft 7 in Weight 155 lb 3.287 oz BMI 24.3 BP 112/84 Blood Pressure Location Rt brachial Position Sitting Pulse 89 Pulse Source Pulse Oximeter Pulse Oximetry (%) 98 Oxygen Delivery Method Room Air Intake Visit Reasons: Biopsy f/u Intake Note: Patient present today for biopsy results. Obiee Report Developer Required: No Accompanied by: Significant Other Allergies No Known Allergies Allergy (Verified 01/05/25 13:35) HPI Comments Details: 49-year-old female here today for follow up of multinodular goiter. HPI 08/09/2024: Ultrasound of the thyroid I reviewed the images myself which showed a right lower pole dominant 2.2 cm nodule which is solid, isoechoic, taller than wide, with the extrathyroidal extension, TR 5 category meeting criteria for FNA. There are subcentimeter benign nodules noted on the left thyroid lobe. No TFTs in the chart. Patient currently denies heat or cold intolerance, diarrhea or constipation, hair loss, palpitation, anxiety, weight changes, mood changes, low energy, changes in appearance of eyes or vision changes, tremors, increased diaphoresis or dry skin. ? LMP: getting every month Patient denies any difficulty swallowing, pain on swallowing or voice changes or difficulty breathing. Patient denies any history of childhood neck radiation. Denies having ever used lithium, amiodarone. Biotin: yes Patient denies any family history of thyroid cancer or thyroid disease. 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 COMPARISON: None available. TECHNIQUE: Linear transducer grayscale and color Doppler examination with attention to the region of the thyroid. FINDINGS: SIZE: Measurements of the thyroid lobes and nodules are given in sagittal, anteroposterior and transverse dimensions respectively. Right Thyroid Lobe: 5.7 x 1.7 x 2.1 cm, volume 10.6 mL. Parenchyma: The gland echotexture is heterogeneous. Thyroid vascularity is increased. Left Thyroid Lobe: 6.0 x 1.1 x 1.5 cm, volume 5.2 mL. Parenchyma: The gland echotexture is heterogeneous. Thyroid vascularity is normal. Isthmus: 0.3 cm in maximum AP dimension. Estimated total number of nodules greater than or equal to 1 cm: 1. 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 Location: Right lower pole. Size: 2.2 x 1.7 x 1.4 cm, volume 2.69 mL. Nodule characteristics: Composition: Solid (2). Echogenicity: Isoechoic (1). Shape: Taller than wide (3). Margins: Extrathyroidal extension (3). Echogenic Foci: None (0). ACR TI-RADS total points: 9 ACR TI-RADS category: 5 2. Location: Left mid pole. Size: 0.4 x 0.2 x 0.4 cm, volume 0.02 mL. Nodule characteristics: Composition: Cystic(0). ACR TI-RADS total points: 0 ACR TI-RADS category: 1 3. Location: Left mid pole. Size: 0.5 x 0.2 x 0.5 cm, volume 0.03 mL. Nodule characteristics: Composition: Spongiform (0). ACR TI-RADS total points: 0 ACR TI-RADS category: 1 NODES: No lymphadenopathy is seen in the tissue surrounding the thyroid gland. IMPRESSION: Enlarged, diffusely heterogeneous multinodular thyroid gland. 2.2 cm RIGHT TR 5 thyroid nodule meets criteria for biopsy. Fine-needle aspiration recommended. [facility] Medical History (Updated 11/04/24 @ 14:03 by Vicki Alba MD) Multinodular goiter Surgical History No pertinent past surgical history Family History Father Substance use disorder Mother Hypertension Substance use disorder Social History Household Members Other:: , 1 daughter, 23, PA at [facility] [employer], Housing: House Patient Tobacco Use Status: Never used Tobacco e-Cigarette/Vaping Use: Never Used service: No Current occupational status: employed Cognitive needs: No Hearing needs: No Vision needs: No Assessment & Plan Assessment & Plan (1) Multinodular goiter: Code(s): E04.2 - Nontoxic multinodular goiter Category: Medical Plan: 49-year-old female with no family history of thyroid cancer, with no personal history of head or neck radiation who is here today for evaluation of multinodular goiter. 08/09/2024: Ultrasound of the thyroid I reviewed the images myself which showed a right lower pole dominant 2.2 cm nodule which is solid, isoechoic, taller than wide, with the extrathyroidal extension, TR 5 category meeting criteria for FNA. There are subcentimeter benign nodules noted on the left thyroid lobe. 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 Discussed with her that the next step would be diagnostic right lobectomy, with the risk that if thyroid cancers found she might need completion thyroidectomy. Also explained that there is a small risk of damage to parathyroid glands, recurrent laryngeal nerve injury, bleeding, infection. Explained to her that Dr. Cheli Godoy at [facility] where we are sending the referral will discuss the risks in much more detail. She has small subcentimeter benign- looking nodules in the left side, these appear very low risk to me, I do not think there is a need for total thyroidectomy. Discussed risk of possible hypothyroidism after surgery. Plan: -referral sent to Dr. Cheli Godoy at [facility] for evaluation for diagnostic right lobectomy Plan I spent 30 minutes in reviewing the record, seeing the patient and documenting in the medical record. Orders: Referrals 2 General Surgery Referral E04.2 - Nontoxic multinodular goiter Patient Instructions: We are referring you to Dr. Cheli Amaya at [facility], if you dont hear from any one in the next two weeks, please give our office a call. Maritza can also call their office directly [phone] Coding Level of Care Code Est Pt Level 4 (13669) Diagnoses Multinodular goiter E04.2 Time Spent (min) 30
[2025-01-05 13:34] VITALS: BP 112/84; PULSE 89; O2SAT 98; BMI 24.3
== END 2025-01-05 13:54 | disposition home or self-care (01) ==
LOC: HO.ENCR 13:28
PROVIDERS: PCP Internal Medicine; Visit Provider Student in an Organized Health Care Education/Training Program
DX: E04.2 Nontoxic multinodular goiter (principal)
CPT/HCPCS: 99214

== ENCOUNTER 2025-04-27 07:10 | Day surgery (SDC) | payer OTHER, SELFPAY ==
--- OUTSIDE RECORDS SUMMARY | 2025-03-31 16:02 | XMS_ITS ---
[facility] Organization Unknown Care Team Organization Name Specialty Phone Email Start Date End Da te [facility] NULL Primary Care 06/04/2023 04/19/2024
[2025-04-25 14:36] VITALS: BMI 24.3
--- NOTE | 2025-04-26 12:17 | HO.ANESPROP2 ---
Documented by User: Evelyn Up NP 04/26/25 12:17 HPI - Anesthesia Eval Consult details Narrative: 49yo F for Colonoscopy [facility] Active Problems Active Problems: All Active Problems Thyroid nodule (Acute) Goiter (Acute) Annual physical exam (Acute) Normal pelvic exam (Acute) Splenic cyst, acquired (Acute) Multinodular goiter (Acute) Past Medical History Medical History (Updated 04/25/25 @ 14:26 by Ashley Myers RN) Splenic cyst Thyroid nodule Multinodular goiter Family History Family History Father Substance use disorder Mother Hypertension Substance use disorder Surgical History Surgical History No pertinent past surgical history Social History Social History Household Members Other:: , 1 daughter, 23, 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 [facility], Housing: House Patient Tobacco Use Status: Never used Tobacco e-Cigarette/Vaping Use: Never Used service: No Current occupational status: employed Cognitive needs: No Hearing needs: No Vision needs: No Meds Allergies Allergy/AdvReac Type Severity Reaction Status Date / Time No Known Allergies Allergy Verified 01/05/25 13:35 Home Medications ?Medication ?Instructions ?Recorded ?Confirmed ?Last Taken ?Type cetirizine 10 mg tablet (Zyrtec) 10 mg PO DAILY PRN Allergy Symptoms 07/19/24 04/27/25 04/26/25 08:00 History Exam Height,Weight and Vital Signs: Height 5 ft 7 in Weight 70.307 kg Assessment and Plan Assessment Anesthesia Assessment: Chart Reviewed Documented by User: Jonah Ford MD 04/27/25 08:21 PMFSH Past Medical History Medical History (Updated 04/25/25 @ 14:26 by Ashley Myers RN) Splenic cyst Thyroid nodule Multinodular goiter Patient : No Family History Family History Father Substance use disorder Mother Hypertension Substance use disorder Family history of problems with anesthesia: No Surgical History Surgical History No pertinent past surgical history History of Problems with Anesthesia: No Social History Social History Household Members Other:: , 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, 23, 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[facility], Housing: House Patient Tobacco Use Status: Never used Tobacco e-Cigarette/Vaping Use: Never Used service: No Current occupational status: employed Cognitive needs: No Hearing needs: No Vision needs: No Meds Allergies Allergy/AdvReac Type Severity Reaction Status Date / Time No Known Allergies Allergy Verified 01/05/25 13:35 Home Medications ?Medication ?Instructions ?Recorded ?Confirmed ?Last Taken ?Type cetirizine 10 mg tablet (Zyrtec) 10 mg PO DAILY PRN Allergy Symptoms 07/19/24 04/27/25 04/26/25 08:00 History Exam Airway Mallampati Class: I TM Dist: >3cm Neck ROM: Full Loose/Missing/Broken Teeth: No Heart: ok Lungs: ok Assessment and Plan Assessment Anesthesia Assessment: Anesthesia Plan Discussed Final Anesthetic Review Family History of Problems with Anesthesia: No History of Problems with Anesthesia: No NPO: Yes ASA Class: II Final Preanesthetic Review: No Changes in Pt Med Stat, Meds/Allgs Chart Reviewed, Consent Obtained/Reviewed and Anes Risks/Benef Reviewed Patient Risk: Low Procedure Risk: Low Anesthetic Plan Anesthetic Plan: MAC: and Agree w/ Assess. and Plan Disposition: Standard PACU
[2025-04-27 07:21] VITALS: BMI 24.2
[2025-04-27 07:29] LABS: UPreg QC Valid YES
[2025-04-27 07:36] VITALS: BP 133/91; PULSE 81; RESP 16; TEMP 36.6; O2SAT 100
[2025-04-27] MEDS: Lactated Ringers 1,000 ML 100 ML IVCONT (07:37)
--- NOTE | 2025-04-27 08:38 | P.HPSUR_ITS ---
Pre-Procedural Eval Section A - 24 Hr Update-Section A only Date of Service: 04/27/25 Section B - Complete if H&P > 30 days Chief Complaint: screening Relevant Family History (Specify if Yes): No Relevant Social History: None Present Medications: see Short Stay Collaborative assessment Medical History: Significant History (Splenic cyst Thyroid nodule Multinodular goiter) History of Previous Operations: No relevant previous surgery Allergies: Allergies Allergy/AdvReac Type Severity Reaction Status Date / Time No Known Allergies Allergy Verified 01/05/25 13:35 Review of Systems Sugical H&P ROS: Negative: Constitution, Cardiovascular, Respiratory, Neurol ogical, Psychiatric, Hem-Onc, Allergic/Immunologic, Gastrointestinal, Genitourinary, Musculoskeletal, Integumentary, Endocrine and Eyes/Ears/Nose/Throat Exam Surgical H&P Exam: Normal: HEENT, Normal: Heart, Normal: Lungs, Normal: Extremities, Normal: Abdomen, Normal: Skin and Normal: Neurological Plan Diagnosis/Plan: Unchanged I have reviewed the history and physical and performed a pertinent physical examination on my patient. No changes have occurred unless specified. Time Spent With Patient Time: Total time managing care of this patient today ____ minutes.
--- NOTE | 2025-04-27 08:59 | P.OPN-COLO_ITS ---
Colonoscopy Operative Note Operative Note Date of Service: 04/27/25 Narrative: Operative Information Procedure Description: Colonoscopy Indication: screening Anesthesia: MAC COLONOSCOPY Instrument: Olympus variable stiffness pediatric scope 190L Colonoscopy Monitoring: Vital signs and clinical assessment, continuous EKG monitoring, Pulse oximetry, Carbon Dioxide monitoring and blood pressure monitoring were done throughout the procedure. Colon withdrawal time was 10 minutes. Procedure: The patient was placed in the left lateral decubitis position and pre-procedure medications were administered. After a digital rectal examination of the ano-rectum, the video colonoscope was inserted into the rectum and advanced through the colon to the cecum/TI. The colonoscope was slowly withdrawn in a retrograde panoramic fashion and the colon mucosa was carefully examined including a retroflexed view of the rectum. Findings and interventions are described below. Procedure Difficulty: moderate Findings: Terminal Ileum-normal Cecum:normal Ascending Colon: moderate right sided diverticulosis Transverse Colon -normal Descending Colon:normal Sigmoid Colon: normal Rectum: Retroflexion with small internal hemorrhoids seen, grade I Anorectum - normal Intervention: none Colon preparation: [place] Bowel Preparation Scale Right colon; 2 Transverse colon: 3 Left colon; 3 (0 = Unprepared colon segment with mucosa not seen due to solid stool that cannot be cleared. 1 = Portion of mucosa of the colon segment seen, but other areas of the colon segment not well seen due to staining, residual stool and/or opaque liquid. 2 = Minor amount of residual staining, small fragments of stool and/or opaque liquid, but mucosa of colon segment seen well. 3 = Entire mucosa of colon segment seen well with no residual staining, small fragments of stool or opaque liquid) Impression and Post Procedure Diagnosis: diverticulosis- right sided internal hemorrhoids Plan: High fiber diet leaflet Avoid straining at stool, epsom salts and sitz bath, anusol supps or cream Repeat Colonoscopy in 10 years or earlier if clinically indicated Above findings were reviewed with the patient and relevant handouts were provided if indicated.
[2025-04-27 09:06] VITALS: BP 106/74; PULSE 78; RESP 18; TEMP 36.4; O2SAT 99
[2025-04-27 09:21] VITALS: BP 124/87; PULSE 75; RESP 16; TEMP 36.3; O2SAT 100
== END 2025-04-27 09:45 | disposition home or self-care (01) ==
PROVIDERS: PCP Internal Medicine; Visit Provider Internal Medicine Gastroenterology
PROC: 0DJD8ZZ Inspection of Lower Intestinal Tract, Via Natural or Artificial Opening Endoscopic (ICD-10-PCS; CPT 45378; principal; 2025-04-27 08:30)
DX: Z12.11 Encounter for screening for malignant neoplasm of colon (principal); K57.30 Diverticulosis of large intestine without perforation or abscess without bleeding; K64.0 First degree hemorrhoids; E04.1 Nontoxic single thyroid nodule; D73.4 Cyst of spleen; Z79.899 Other long term (current) drug therapy
CPT/HCPCS: 45378; 81025; J2003; J2704

== ENCOUNTER → 2025-04-27 07:10 | Outpatient (BNV) | payer OTHER, SELFPAY | PROVIDERS: PCP Internal Medicine; Visit Provider Internal Medicine Gastroenterology | DX: Z12.11 Encounter for screening for malignant neoplasm of colon (principal); K57.30 Diverticulosis of large intestine without perforation or abscess without bleeding; K64.0 First degree hemorrhoids | CPT/HCPCS: 45378 ==

== ENCOUNTER 2025-07-13 04:21 | Emergency (ER) | payer OTHER, SELFPAY ==
--- NOTE | ~2025-07-13 | XR_ITS ---
CLINICAL HISTORY: chest pain 2 view chest x-ray Comparison: CR/SR - XR CHEST 2 VIEWS - 07/02/2024 04:46 PM EDT Findings: No consolidation or effusion. Normal size heart. No acute fracture. Large peripherally calcified splenic cyst IMPRESSION: 1. No acute findings. This document has been electronically signed by: Anthony Yoon MD, PHD on 07/13/2025 05:15:00
[2025-07-13 04:27] VITALS: BP 131/101; PULSE 86; RESP 20; TEMP 36.6; O2SAT 100; BMI 24.3
--- NOTE | 2025-07-13 04:38 | ED.CHESTPAIN ---
HPI - Chest Pain General Chief Complaint: General Medical Stated Complaint: Cough Time Seen by Provider: 07/13/25 04:26 Source: patient Mode of arrival: ambulatory Limitations: no limitations History of Present Illness ED Provider: Dr. Patti Kwong HPI narrative: 50-year-old female with history of multinodular goiter, splenic cyst presenting with left anterior chest wall tenderness that has been ongoing for the last several days. Associated with dry cough and subjective fevers. She is having associated pharyngitis. Describes pleuritic chest pain under the left breast that is worse with deep breaths and movement as well as palpation over the area. No measured fever. Has been around others that are sick with upper respiratory symptoms. Denies associated vomiting, lower extremity edema or pain. Related Data Home Medications ?Medication ?Instructions ?Recorded ?Confirmed cetirizine 10 mg tablet (Zyrtec) 10 mg PO DAILY PRN Allergy Symptoms 07/19/24 04/27/25 Previous Rx's ?Medication ?Instructions ?Recorded bisacodyl 5 mg tablet,delayed 20 mg (4 x 5 mg) PO ONCE 04/21/25 release (Dulcolax (bisacodyl)) colonoscopy prep 1 day #4 tabs polyethylene glycol 3350 17 238 g PO ONCE colonoscopy prep 1 04/21/25 gram/dose oral powder (Miralax) day #238 grams azithromycin 250 mg tablet 250 mg PO DAILY 4 days #4 tabs 07/13/25 fluconazole 200 mg tablet 200 mg PO DAILY #10 tabs 07/13/25 Allergies Allergy/AdvReac Type Severity Reaction Status Date / Time No Known Allergies Allergy Verified 07/13/25 04:29 Review of Systems Review of Systems: as per HPI, full review of systems performed and negative but for the above mentioned pertinent positives and negatives. 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 SKIN: Normal skin color for ethnicity, warm, dry, no rashes noted. HEENT: Normocephalic, atraumatic, no stridor, posterior oropharynx nonerythematous, dentition intact, EOMI. NECK: Soft, supple, full ROM, midline structures nontender, no step-offs, no deformities, no lymphadenopathy. CHEST: Heart regular rate and rhythm, no murmurs, symmetric chest rise and fall, left anterior chest wall tenderness to palpation at ribs 4-5, no crepitus. PULMONARY: Clear to auscultation bilaterally, no labored breathing, occasional rhonchi, no wheeze, occasional wet cough. ABDOMINAL: Soft, nondistended, nontender, positive bowel sounds in all quadrants. : Deferred. MUSCULOSKELETAL: Normal tone, full range of motion, no deformities, no peripheral edema. NEURO: Alert and oriented x3, CN II through XII intact, equal strength and sensation bilateral upper and lower extremities, no focal neurologic deficits. PSYCHIATRIC: Normal affect, fluid speech, good eye contact and appropriate demeanor. Vital Signs: Vital Signs: Last Vital Signs Temp 97.8 F 07/13/25 04:27 Pulse 86 07/13/25 04:27 Resp 20 07/13/25 04:27 BP 131/101 H 07/13/25 04:27 Pulse Ox 100 07/13/25 04:27 O2 Del Method Room Air 07/13/25 04:27 BMI result Body Mass Index 24.3 Medications Administered Discontinued Medications Generic Name Dose Route Start Last Admin Trade Name Freq PRN Reason Stop Dose Admin Azithromycin 500 mg 07/13/25 04:38 07/13/25 05:06 Azithromycin 500 Mg Tablet PO 07/13/25 04:39 500 mg ONCE ONE Administration Medical Decision Making Medical Decision Making MDM Narrative: Patient presents today with a chief complaint of chest pain in the setting of recent URI symptoms. Differential diagnosis includes, but is not limited to, musculoskeletal pain, pneumothorax, pleurisy, pneumonia, URI, among others. I will order chest x-ray, laboratory workup to evaluate for etiology. Chest x-ray shows potential left lower lung field infiltrate. Plan for a Z-Romaine. Patient requested Diflucan for yeast infection prophylaxis. Stable for discharge. Differential Diagnosis Differential Diagnoses: The differential diagnosis associated with the presentation includes (as above) Lab Data MDM Lab Attestation statement: I reviewed the patient's lab results. Labs: Lab Results 07/13/25 Range/Units 04:34 Influenza Type A (PCR) NEGATIVE (Negative) Influenza Type B (PCR) NEGATIVE (Negative) RSV RNA Qual (PCR) NEGATIVE (Negative) SARS-CoV-2 RNA (RT-PCR) NEGATIVE (Negative) Independent Interpretation I performed an independent interpretation of an: Plain X-Ray Interpretation: Linear infiltrate in the posterior aspect of the lateral film, concern for spine sign and left lower lobe infiltrate. Radiology Impression Discussion of test interpretation with radiology: I have reviewed the radiologist's reading. External Record Review External record reviewed: Inpatient record Prescription Management I considered prescription management with: Antibiotic Discharge Plan Discharge Clinical Impression: Community acquired pneumonia Patient Disposition: Home, Self-Care Additional Instructions: Take your antibiotics like a good patient should. You know where to go if you get worse. Prescriptions: New azithromycin 250 mg tablet 250 mg PO DAILY 4 Days Qty: 4 0RF fluconazole 200 mg tablet 200 mg PO DAILY Qty: 10 0RF No Action bisacodyl [Dulcolax (bisacodyl)] 5 mg tablet,delayed release (DR/EC) 20 mg PO ONCE 1 Days Qty: 4 0RF Rx Instructions: the day before colonoscopy take 2 pills at 12pm and 2 pills at 5pm with plenty of water polyethylene glycol 3350 [Miralax] 17 gram/dose powder 238 g PO ONCE 1 Days Qty: 238 0RF Rx Instructions: THE DAY BEFORE your procedure mix entire bottle with 64 ounces of Gatorade- no red, blue or purple. AT 5PM Start drinking 1 cup every 15minutes until half is gone. Continue drinking plenty of clear liquids. AT 10PM Finish drinking remaining prep. cetirizine [Zyrtec] 10 mg tablet 10 mg PO DAILY PRN (Reason: Allergy Symptoms) Print Language: Italian
--- NOTE | 2025-07-13 05:07 | PC.NURSE ---
pt medicated per oct. awaiting x-ray results.
[2025-07-13 05:16] LABS: Resp Syncy Virus RNA Qual PCR NEGATIVE (Negative); SARS COV2 PCR INHOUSE NEGATIVE (Negative)
[2025-07-13 06:09] VITALS: BP 134/89; PULSE 86; RESP 20; TEMP 36.6; O2SAT 100
[2025-07-13 06:10] VITALS: BP 134/89; PULSE 86; RESP 20; TEMP 36.6; O2SAT 100
== END 2025-07-13 06:11 | disposition home or self-care (01) ==
PROVIDERS: Emergency Provider Emergency Medicine; PCP Internal Medicine
DX: J18.9 Pneumonia, unspecified organism (principal)
CPT/HCPCS: 71046; 87637; 99283; 99284

== ENCOUNTER → 2025-07-13 04:27 | Outpatient (BNV) | payer OTHER, SELFPAY | PROVIDERS: Emergency Provider Emergency Medicine; PCP Internal Medicine; Visit Provider General Practice | DX: R07.9 Chest pain, unspecified (principal) | CPT/HCPCS: 71046 ==